=== PATIENT | female | born 1990 | race Caucasian/White ===

== ENCOUNTER 2021-01-01 14:26 | Emergency (ER) | payer BC, SELFPAY ==
[2021-01-01 15:00] VITALS: BP 136/93; PULSE 61; RESP 16; TEMP 37.9; O2SAT 99; BMI 33.9
[2021-01-01 15:12] LABS: Apearance,Urine Turbid (Clear); Color,Urine Orange (Yellow); Protein,Urine 2+ (Negative)
[2021-01-01 15:13] LABS: Glucose,Urine (UA) Trace (Negative); Ketones,Urine TRACE (Negative)
[2021-01-01 15:14] LABS: Bilirubin,Urine 1+ (Negative); Blood, Urine 1+ (Negative)
[2021-01-01 15:15] LABS: UTC Leukocyte Esterase,Urine 3+ (Negative); UTC Nitrate,Urine Positive (Negative); Urobilinogen,Urine 2 EU/dl (0.2)
--- NOTE | 2021-01-01 15:52 | HMH.EDUTC ---
[facility] – [place] Disposition Clinical Impression: UTI (urinary tract infection) Qualifiers: Urinary tract infection type: site unspecified Hematuria presence: with hematuria Qualified Code(s): N39.0 - Urinary tract infection, site not specified Disposition: Home, Self-Care Condition on Discharge: Good Instructions: Urinary Tract Infection, DI for Urinary Tract Infection (UTI) Additional Instructions: Drink plenty of fluids. Take tylenol or ibuprofen for pain or fever. Take the medications as directed. Follow up with your regular doctor. GO TO THE ER FOR ANY WORSENING SYMPTOMS The pyridium will make your urine turn orange, this is an expected side effect. It will stain your clothes if it comes into contact with them. Prescriptions: Ondansetron [Zofran 4mg ODT] 4 mg PO Q8HP PRN #20 tab.rapdis PRN Reason: Nausea [facility] Ciprofloxacin HCl [Cipro 500mg Tab] 500 mg PO BID 7 Days #14 tab Transmission Status: [facility] Phenazopyridine HCl [Pyridium 200mg Tablet] 200 pow PO TID #6 tab Transmission Status: [facility] Referrals: Provider,Referral, [Primary Care Provider] - Forms: Work/School Release Time of Disposition: 15:58 Medical Decision Making - Medical Records Medical records reviewed: No: I reviewed the patient's medical records. - Elio Inquiry Pt receiving controlled substance: No Vital Signs: 01/01/21 15:00 01/01/21 16:02 Temperature 100.3 F H 100.4 F H Temperature Source Oral Pulse Rate 124 H Pulse Rate [Right] 61 Respiratory Rate 16 16 Blood Pressure 132/87 Blood Pressure [Right Arm] 136/93 H Blood Pressure Mean [Right Arm] 107 Blood Pressure Source [Right Arm] Automatic Cuff Blood Pressure Position [Right Arm] Sitting 02 Sat by Pulse Oximetry 99 Oxygen Delivery Method Room Air - Lab Data Lab results reviewed: Yes: I reviewed the patient's lab results. Lab Results 01/01/21 15:07: Urine Color [place], Urine Appearance Turbid, Urine pH 5.0, Ur Specific [place] 1.020, Urine Protein 2+, Urine Glucose (UA) Trace, Urine Ketones Trace, Urine Blood 1+, Urine Nitrate Positive A, Urine Bilirubin 1+ A, Urine Urobilinogen 2, Ur Leukocyte Esterase 3+ A Orders (Tests/Meds): ORDERS Category Date Time Status Urine Culture Stat Micro 01/01/21 15:04 Results [facility] – [place] HPI - General Stated complaint: back and side pain,body aches Time Seen by Provider: 01/01/21 15:52 Mode of Arrival: Ambulatory Source of Information: Patient Limitations: No Limitations Description of Symptoms (Recalled from Triage Doc. by RN): pt was seen in the [facility] on Fri. she was dx with a UTI. pt was perscribed bactrim and peridium, with no relief thus far. pt complains of R sided flank and lower back pain that is a 7/10. pt c/o sweats, nausea, no appetite, lightheadedness, and is febrile. HEENT Symptoms (Recalled from RN notes): No Resp Symptoms (Recalled from RN notes): No Skin Symptoms (Recalled from RN notes): No MS Symptoms (Recalled from RN notes): No Functional Status (Recalled from RN notes): na - History of Present Illness Provider Complaint: She states that she has had low back pain and dysuria for the past 4 days. She went to the clinic in [facility] and she was diagnosed with uti and started on medication. She states that she is not better. - Related Data Home Medications Medication Instructions Recorded Confirmed norgestimate 0.25 mg-ethinyl 1 tab PO DAILY 12/29/20 12/29/20 estradiol 35 mcg tablet Previous Rx's Medication Instructions Recorded phenazopyridine 200 mg tablet 200 mg PO TID PRN 0 Days #6 tab 12/29/20 sulfamethoxazole 800 1 tab PO Q12H 10 Days #20 tab 12/29/20 mg-trimethoprim 160 mg tablet Ciprofloxacin HCl [Cipro 500mg 500 mg PO BID 7 Days #14 tab 01/01/21 Tab] Ondansetron [Zofran 4mg ODT] 4 mg PO Q8HP PRN #20 tab.rapdis 01/01/21 Phenaz
[2021-01-01 16:02] VITALS: BP 132/87; PULSE 124; RESP 16; TEMP 38
== END 2021-01-01 16:51 | disposition home or self-care (01) ==
PROVIDERS: Emergency Provider Nurse Practitioner Family
DX: N30.00 Acute cystitis without hematuria (principal); F41.8 Other specified anxiety disorders; F17.210 Nicotine dependence, cigarettes, uncomplicated
CPT/HCPCS: 81003; 87086; 87088; 87186; 99202; G0463

== ENCOUNTER → 2021-09-11 09:40 | Outpatient (CLI) | payer BC, SELFPAY | PROVIDERS: Visit Provider Nurse Practitioner | DX: Z20.822 Contact with and (suspected) exposure to COVID-19 (principal) | CPT/HCPCS: C9803; U0003; U0005 ==

== ENCOUNTER 2021-09-12 10:38 | Emergency (ER) | payer BC, SELFPAY ==
[2021-09-12 12:40] VITALS: BP 132/87; PULSE 84; RESP 18; TEMP 37.1; O2SAT 100; BMI 36.1
[2021-09-12 12:59] LABS: Strep Scrn Group A (Rapid) Negative (Negative)
[2021-09-12 13:08] LABS: UTC Influenza A Antigen Negative (Negative)
[2021-09-12 13:09] LABS: UTC Influenza B Antigen Negative (Negative)
--- NOTE | 2021-09-12 13:11 | HMH.EDUTC ---
[facility] – [place] Disposition Clinical Impression: Sinusitis Qualifiers: Sinusitis location: unspecified location Chronicity: unspecified Qualified Code(s): J32.9 - Chronic sinusitis, unspecified Disposition: Home, Self-Care Condition on Discharge: Good Instructions: Sinusitis, DI for Sinusitis Additional Instructions: *Monitor Temp, Over the counter Motrin or Tylenol as directed/as needed Tylenol every 4 hours and Motrin every 6 hours (as long as your family doctor has told you that you can take it) for fever or pain. and straight to ER if unable to lower temp less than 101.0 after medication given *Warm salt water gargles may help to soothe the throat *Throat Lozenges *Warm fluids like tea with honey may help to soothe the throat *Sleep elevated *Humidifier/Vaporizer Your throat swab was sent for culture. Those results are typically sent to your primary care. Be sure to follow up in 2-3 days with your family doctor/primary care physician if no improvement so they can review those result and treat if necessary. If you don?t have a primary care doctor, I recommend you get one but in the mean time, you will have to return to a walk in clinic Follow up IMMEDIATELY for new or worsening symptoms or no Noticeable improvement over the next 48-72 hours. 911 for difficulty breathing or swallowing You were tested for today for COVID19 your test result should be back in the next 24-48 hours, you may check your results on the [facility] my Health portal if you have trouble logging on you may call support to help you Make sure to take your Vitamins Vit. C Vit D and Zinc if you can take them Prescriptions: Benzonatate [Benzonatate 100mg cap] 100 mg PO Q8HP PRN #15 cap PRN Reason: Cough [facility]: [facility] Amoxicillin/Potassium Clav [Augmentin 875-125 Tablet] 1 tab PO Q12H 7 Days #14 tab Transmission Status: [facility] methylPREDNISolone [Medrol 4mg tab] 4 mg PO DIRECTED #21 tab Transmission Status: [facility] Referrals: Provider,Referral, MD [Primary Care Provider] - Forms: Work/School Release Time of Disposition: 13:16 Medical Decision Making - Elio Inquiry Pt receiving controlled substance: No Elio was queried for this patient: No Vital Signs: 09/12/21 12:40 Temperature 98.7 F Temperature Source Oral Pulse Rate [Right Brachial] 84 Respiratory Rate 18 Blood Pressure [Right Arm] 132/87 Blood Pressure Mean [Right Arm] 102 Blood Pressure Source [Right Arm] Automatic Cuff Blood Pressure Position [Right Arm] Sitting 02 Sat by Pulse Oximetry 100 Oxygen Delivery Method Room Air - Lab Data Lab results reviewed: Yes: I reviewed the patient's lab results. Lab Results 09/12/21 12:32: Influenza Type A Ag Negative, Influenza Type B Ag Negative 09/12/21 12:32: Group A Strep Rapid Negative Orders (Tests/Meds): ORDERS Category Date Time Status Covid-19 Nasal PCR ([facility]) Routine Lab 09/12/21 12:32 Received Strep Screen Confirmation Stat Micro 09/12/21 12:32 Received Medical Decision Narrative: Patient denies reports last period two weeks ago [facility] [place] HPI - General Stated complaint: sore throat, congestion Time Seen by Provider: 09/12/21 13:12 Mode of Arrival: Ambulatory Source of Information: Patient Limitations: No Limitations Description of Symptoms (Recalled from Triage Doc. by RN): PATIENT C/O COUGH, CONGESTION, BODY ACHES, SOA, SORE THROAT, AND LOW-GRADE FEVER X 3 DAYS HEENT Symptoms (Recalled from RN notes): Yes Resp Symptoms (Recalled from RN notes): Yes Skin Symptoms (Recalled from RN notes): No MS Symptoms (Recalled from RN notes): No Functional Status (Recalled from RN notes): WNL - History of Present Illness Provider Complaint: Patient state that she has been having sinus pain and pressure, sore throat, cough, congestion, and having headache and body aches, States that she was tested yesterday for COVID and wa
[2021-09-12 13:27] VITALS: BP 132/87; PULSE 84; RESP 18; TEMP 37.1; O2SAT 100
== END 2021-09-12 13:35 | disposition home or self-care (01) ==
PROVIDERS: Emergency Provider Nurse Practitioner
DX: J32.9 Chronic sinusitis, unspecified (principal); Z20.822 Contact with and (suspected) exposure to COVID-19; J02.9 Acute pharyngitis, unspecified; F17.210 Nicotine dependence, cigarettes, uncomplicated
CPT/HCPCS: 87430; 87804; 99203; C9803; G0463; U0003; U0005

== ENCOUNTER 2021-11-01 21:44 | Emergency (ER) | payer BC, SELFPAY ==
--- NOTE | 2021-11-01 21:44 | ECG_ITS ---
APPROVED REPORT Exam: Resting ECG HR:90 bpm ECG Measurements Heart Rate 90 AXES CA 139 P 68 QRSd 90 QRS 87 QT 350 T 64 QTc 397 Conclusion SINUS RHYTHM NORMAL ECG UNCONFIRMED REPORT Electronically signed by : Albin Johansen MD 11/03/2021 12:33:04
[2021-11-01 21:45] VITALS: BP 135/75; PULSE 87; RESP 18; TEMP 36.7; O2SAT 99; BMI 35.2
--- NOTE | 2021-11-01 21:56 | XR_ITS ---
PROCEDURE INFORMATION: Exam: XR Chest Exam date and time: 11/01/2021 10:17 PM Age: 30 years old Clinical indication: Cough and shortness of breath TECHNIQUE: Imaging protocol: XR of the chest. Views: 2 views. COMPARISON: No relevant prior studies available. FINDINGS: Lungs: Unremarkable. No consolidation. Pleural spaces: Unremarkable. No pleural effusion. No pneumothorax. Heart/Mediastinum: Unremarkable. No cardiomegaly. Bones/joints: Unremarkable. IMPRESSION: No acute findings.
--- NOTE | 2021-11-01 21:57 | CT_ITS ---
PROCEDURE INFORMATION: Exam: CTA Chest With Contrast Exam date and time: 11/01/2021 10:27 PM Age: 30 years old Clinical indication: Cough and shortness of breath; Additional info: SOA, cough TECHNIQUE: Imaging protocol: Computed tomographic angiography of the chest with contrast. 3D rendering (Not supervised by radiologist): MIP and/or 3D reconstructed images were created by the technologist. Radiation optimization: All CT scans at this facility use at least one of these dose optimization techniques: automated exposure control; mA and/or kV adjustment per patient size (includes targeted exams where dose is matched to clinical indication); or iterative reconstruction. Contrast material: ISOVUE; Contrast volume: 70 ml; Contrast route: INTRAVENOUS (IV); COMPARISON: CR XR CHEST 2V 11/01/2021 10:17 PM FINDINGS: Pulmonary arteries: Normal. No pulmonary emboli. Aorta: Unremarkable. No aortic aneurysm. No aortic dissection. Lungs: Unremarkable. No consolidation. No masses. Pleural spaces: Unremarkable. No pneumothorax. No pleural effusion. Heart: Unremarkable. No cardiomegaly. No pericardial effusion. Lymph nodes: Unremarkable. No enlarged lymph nodes. Bones/joints: Unremarkable. No acute fracture. Soft tissues: Unremarkable. IMPRESSION: No acute findings.
[2021-11-01 22:04] LABS: Basophils # 0.2 K/mm3 (0-0.2); Basophils % 1.5 % (0.1-2.0); Eosinophils # 0.3 K/mm3 (0.0-0.4); Eosinophils % 3.4 % (0.1-12.0); Hematocrit 49.2 % (37.0-47.0); Hemoglobin 15.6 g/dL (12.2-16.2); Lymphocytes # 0.9 K/mm3 (0.7-4.5); Lymphocytes % 9.2 % (10-50); Mean Corpuscular HGB Conc 31.6 g/dL (31.8-35.4); Mean Corpuscular Hemoglobin 30.5 pg (27.0-31.2); Mean Corpuscular Volume 96.6 fl (81-99); Mean Platelet Volume 8.2 fl (7.4-10.4); Monocytes # 0.5 K/mm3 (0.1-1.0); Monocytes % 5.1 % (1.7-9.3); Neutrophils # 7.9 K/mm3 (1.8-7.8); Neutrophils % 80.8 % (37.0-80.0); Platelet Count 309 K/mm3 (142-424); Red Blood Count 5.09 M/mm3 (4.20-5.40); Red Cell Distribution Width 13.1 % (11.5-17.5); White Blood Count 9.8 K/mm3 (4.8-10.8)
[2021-11-01 22:05] LABS: Chloride 104 mmol/L (98-107); Potassium 4.1 mmoL/L (3.5-5.1); Sodium 139 mmol/L (136-145)
[2021-11-01 22:07] LABS: Alanine Aminotransferase 35 U/L (12-78); Aspartate Amino Transferase 38 U/L (14-36); Bilirubin,Total 0.6 mg/dl (0.2-1.3); Blood Urea Nitrogen 14 mg/dl (7-17); Creatinine Clearance Estimated 130 mL/min (50-200); Estimated Glomerular Filt Rate 53 ml/min (>60); GFR (African American) 65 ML/MIN (>60)
[2021-11-01 22:08] LABS: Albumin Level 4.8 g/dl (3.5-5.0); Albumin/Globulin Ratio 1.3 (1.1-1.8); Alkaline Phosphatase 85 U/L (38-126); Anion Gap 10.1 mEq/L (5-15); Calcium 9.1 mg/dl (8.4-10.2); Carbon Dioxide 29 mmol/L (22.0-30.0); Globulin 3.7 g/dL (1.3-3.2); Glucose 73 mg/dl (74-100); Total Protein,Serum 8.5 g/dl (6.3-8.2)
--- NOTE | 2021-11-01 22:09 | HMH.EDCP ---
ED Disposition Clinical Impression: Pleurisy Disposition: Home, Self-Care Condition on Discharge: Good Instructions: DI for Pleurisy Additional Instructions: use meds and see pcp for follow up Prescriptions: predniSONE [Prednisone 20mg Tab] 20 mg PO BID #10 tab Transmission Status: [facility] Azithromycin [Zithromax 250mg tab] 250 mg PO DIRECTED #6 tab Transmission Status: [facility] Referrals: Provider,Referral, [Primary Care Provider] - - Critical Care Critical Care Time: No Attestation: On 11/01/21, the high probability of a clinically significant, sudden or life threatening deterioration of the following system(s) required my full and direct attention, intervention and personal management. The time I documented below is in addition to time spent performing reported procedures but includes the following listed in this critical care notation. Medical Decision Making - Medical Records Medical records reviewed: Yes: I reviewed the patient's medical records. - Elio Inquiry Pt receiving controlled substance: No Vital Signs: 11/01/21 21:45 Temperature 98.1 F Temperature Source Oral Pulse Rate [Apical] 87 Respiratory Rate 18 Blood Pressure [Right Arm] 135/75 Blood Pressure Mean [Right Arm] 95 Blood Pressure Source [Right Arm] Automatic Cuff Blood Pressure Position [Right Arm] Sitting 02 Sat by Pulse Oximetry 99 Oxygen Delivery Method Room Air - Lab Data Lab results reviewed: Yes: I reviewed the patient's lab results. Lab Results 11/01/21 21:49: WBC 9.8, RBC 5.09, Hgb 15.6, Hct 49.2 H, MCV 96.6, MCH 30.5, MCHC 31.6 L, RDW 13.1, Plt Count 309, MPV 8.2, Neut % (Auto) 80.8 H, Lymph % (Auto) 9.2 L, [place] % (Auto) 5.1, Eos % (Auto) 3.4, Baso % (Auto) 1.5, Neut # (Auto) 7.9 H, Lymph # (Auto) 0.9, [place] # (Auto) 0.5, Eos # (Auto) 0.3, Baso # (Auto) 0.2 11/01/21 21:49: Sodium 139, Potassium 4.1, Chloride 104, Carbon Dioxide 29, Anion Gap 10.1, BUN 14, Creatinine 1.20 H, Estimated Creat Clear 130, Estimated GFR 53 L, Est GFR ( Amer) 65, Glucose 73 L, Calcium 9.1, Total Bilirubin 0.6, AST 38 H, ALT 35, Alkaline Phosphatase 85, Total Protein 8.5 H, Albumin 4.8, Globulin 3.7 H, Albumin/Globulin Ratio 1.3 11/01/21 21:49: ESR 18 11/01/21 21:49: C-Reactive Protein 6.0 H, Procalcitonin 0.033 11/01/21 21:49: Serum HCG, Qual Negative 11/01/21 22:06: SARS-CoV-2 (PCR) Not detected, Influenza A Untype (PCR) Not detected, Influenza Type B (PCR) Not detected Result diagrams: 11/01/21 21:49 11/01/21 21:49 Orders (Tests/Meds): ED MEDICATIONS Generic Name Dose Route Start Last Admin Trade Name Freq PRN Reason Stop Dose Admin Lactated Ringer's 1,000 mls @ 999 mls/hr 11/01/21 22:15 11/01/21 22:02 Lactated Ringer's 1000 Ml Bag IV 11/01/21 23:15 999 mls/hr .Q1H1M JANN Administration Discontinued Medications Generic Name Dose Route Start Last Admin Trade Name Freq PRN Reason Stop Dose Admin Sodium Chloride 1,000 mls @ 999 mls/hr 11/01/21 22:00 Sod Chlor 0.9% 1000ml Bag IV 11/01/21 23:00 .Q1H1M JANN Iopamidol 70 ml 11/01/21 22:36 11/01/21 22:37 Iopamidol-370 (76%);100ml Bottle IV 11/01/21 22:37 70 ml ONCE ONE Administration Ketorolac Tromethamine 30 mg 11/01/21 21:57 11/01/21 22:02 Ketorolac 30mg/Ml Vial IV 11/01/21 21:58 30 mg ONCE ONE Administration Sodium Chloride 50 ml 11/01/21 22:36 11/01/21 22:37 0.9 % Sodium Chloride 50 Ml Vial IV 11/01/21 22:37 50 ml ONCE ONE Administration Sodium Chloride 10 ml 11/01/21 22:36 11/01/21 22:37 Sodium Chloride 0.9% 10ml Syr (Rad Only) IV 11/01/21 22:37 10 ml ONCE ONE Administration ORDERS Category Date Time Status Comprehensive Metabolic Panel Stat Lab 11/01/21 21:49 Results T4 (Thyroxine) Stat Lab 11/01/21 21:49 Results Thyroid Stimulating Hormone Stat Lab 11/01/21 21:49 Results Troponin I Q3H Lab 11/02/21 01:00 Ordered Tropon
[2021-11-01 22:10] LABS: Coronavirus 19, PCR Not Detected (NotDetected); Influenza A, PCR Not Detected (NotDetected); Influenza B, PCR Not Detected (NotDetected)
[2021-11-01 22:22] LABS: HCG Qualitative, Serum Negative (Negative)
[2021-11-01 22:26] LABS: T4 (Thyroxine) 9.1 ug/dl (5.53-11.0)
[2021-11-01 22:34] LABS: Procalcitonin 0.033 ng/mL (0.0-2.0)
[2021-11-01 22:39] LABS: Thyroid Stimulating Hormone 2.44 uIU/mL (0.465-4.68)
[2021-11-01 22:48] LABS: Erythrocyte Sedimentation Rate 18 mm/hr (0-20)
[2021-11-01 23:17] VITALS: BP 130/70; PULSE 78; RESP 20; TEMP 36.8; O2SAT 99
[2021-11-01 23:29] LABS: Troponin I < 0.01 ng/ml (0.00-0.034)
== END 2021-11-01 23:19 | disposition home or self-care (01) ==
PROVIDERS: Emergency Provider Emergency Medicine
DX: R09.1 Pleurisy (principal); F41.8 Other specified anxiety disorders; F17.210 Nicotine dependence, cigarettes, uncomplicated; Z79.899 Other long term (current) drug therapy
CPT/HCPCS: 71046; 71275; 80053; 84145; 84436; 84443; 84484; 84703; 85025; 85651; 86140; 93005; 96365; 96375; 99284; C9803; Q9967; U0003; U0005

== ENCOUNTER 2021-11-04 09:04 | Emergency (ER) | payer BC, SELFPAY ==
[2021-11-04 09:10] VITALS: BP 143/90; PULSE 129; RESP 19; TEMP 36.8; O2SAT 99; BMI 36.7
--- NOTE | 2021-11-04 09:46 | PC.NURSE ---
PATIENT SENT TO ER PER Joaquín KENNEDY APRN FOR FURTHER EVALUATION. REPORT GIVEN TO Ambar CHAVEZ RN
--- NOTE | 2021-11-04 09:47 | HMH.EDUTC ---
[facility] – [place] Clinical Impression: Chest pain Qualifiers: Chest pain type: chest pain on breathing Qualified Code(s): R07.1 - Chest pain on breathing Disposition: Still a Patient Condition on Discharge: Good Referrals: Provider,Referral, [Primary Care Provider] - Time of Disposition: 09:51 (sent to ed for eval) Medical Decision Making - Elio Inquiry Pt receiving controlled substance: No Vital Signs: 11/04/21 09:10 Temperature 98.3 F Temperature Source Oral Pulse Rate [Right Brachial] 129 H Respiratory Rate 19 Blood Pressure [Right Arm] 143/90 H Blood Pressure Mean [Right Arm] 107 Blood Pressure Source [Right Arm] Automatic Cuff Blood Pressure Position [Right Arm] Sitting 02 Sat by Pulse Oximetry 99 Oxygen Delivery Method Room Air [facility] – [place] HPI - General Chief complaint: Urgent [facility] Stated complaint: dizziness, congestion Time Seen by Provider: 11/04/21 09:47 Mode of Arrival: Ambulatory Source of Information: Patient Limitations: No Limitations Description of Symptoms (Recalled from Triage Doc. by RN): PATIENT C/O ELEVATED HEART RATE WITH EXERTION, DIFFICULTY BREATHING, PAIN IN CHEST WITH BREATHING, BODY ACHES, AND LOW-GRADE FEVER. SHE REPORTS SHE WAS SEEN IN ER ON 11/01 AND WAS DIAGNOSED WITH PLEURISY AND GIVEN Z-PACK AND PREDNISONE AND TOLD TO RETURN IF NOT BETTER HEENT Symptoms (Recalled from RN notes): No Resp Symptoms (Recalled from RN notes): Yes Skin Symptoms (Recalled from RN notes): No MS Symptoms (Recalled from RN notes): No Functional Status (Recalled from RN notes): WNL - History of Present Illness Provider Complaint: 30 yr old female presents for elevated hr, difficulty breathing,pain with breathing, body aches and low grade fever. pt was seen in ed on 11/01 and was given xpak and steroids but is not improved. - Related Data Allergies Allergy/AdvReac Type Severity Reaction Status Date / Time shrimp Allergy Mild Verified 07/24/21 15:14 - Worker's Comp Is this a Worker's Comp case?: No [facility] History - Hepatitis A Screen Drug use history?: No High risk sexual behaviors?: No History of sexually transmitted infection?: No Currently employed?: No Childcare worker?: No Do you have indoor plumbing?: Yes Do you have electricity?: Yes Attestation statement:: This patient has been screened for Hepatitis A risk factors. I have reviewed the patient's past medical history: Yes Medical History: Reports:: Anxiety, Depression Comment: Bipolar Disorder Other Surgeries: Yes: No Previous Surgery Amputation: No Fractures: Yes - Social History Smoking Status: Current every day smoker Tobacco Type: cigarettes # Packs/Day (cigarettes): 1 Alcohol Intake: current Alcohol Intake Frequency:: holidays/special occasions only Substance Use Type: marijuana Occupational Status: employed Housing: house Household Members: family - Psychiatric History Pschychiatric History:: Reports:: Anxiety, Depression Family Hx:: No significant family history ROS Obtained: Yes Systems reviewed as appropriate & no additional complaints - Constitutional Constitutional: Reports system reviewed and no additional complaints, except as docu, Reports body ache, Reports fever(s) - Eyes Eyes: Reports system reviewed and no additional complaints, except as docu, Denies blurry vision - ENT Ears, Nose, Mouth, and Throat: Reports system reviewed and no additional complaints, except as docu, Reports sinus pain, Reports sinus pressure - Cardiovascular Cardiovascular: Reports system reviewed and no additional complaints, except as docu, Reports chest pain, Reports chest pain with activity, Reports dyspnea on exertion - Respiratory Respiratory: Reports system reviewed and no additional complaints, except as docu, Reports shortness of breath - Gastrointestinal Gastrointestingal: Reports: system reviewed and no additional complaints, except as docu. Denies: abdominal pain - Musculoskeletal Musculoskeleta
--- NOTE | 2021-11-04 09:50 | ECG_ITS ---
APPROVED REPORT Exam: Resting ECG HR:100 bpm ECG Measurements Heart Rate 100 AXES [place] 127 P 51 QRSd 84 QRS 76 QT 328 T 47 QTc 385 Conclusion SINUS TACHYCARDIA NONSPECIFIC T-WAVE ABNORMALITY ABNORMAL RHYTHM ECG UNCONFIRMED REPORT Electronically signed by : Albin Johansen MD 11/04/2021 20:09:24
[2021-11-04 09:57] VITALS: BP 127/84; PULSE 62; RESP 20; O2SAT 97; BMI 36.7
--- NOTE | 2021-11-04 09:58 | HMH.EDGENADL ---
ED Disposition Clinical Impression: Influenza A Disposition: Home, Self-Care Condition on Discharge: Good Instructions: DI for Influenza -- Adult Additional Instructions: You may stop taking Zithromax and prednisone. Tamiflu as prescribed. Rest, plenty of fluids, Tylenol or ibuprofen for pain and fever. Prescriptions: Oseltamivir Phosphate [Tamiflu 75mg Capsule] 75 mg PO BID #10 cap Transmission Status: Pending to [facility] Referrals: Provider,Referral, MD [Primary Care Provider] - Forms: Work/School Release - Critical Care Critical Care Time: No Attestation: On 11/04/21, the high probability of a clinically significant, sudden or life threatening deterioration of the following system(s) required my full and direct attention, intervention and personal management. The time I documented below is in addition to time spent performing reported procedures but includes the following listed in this critical care notation. Medical Decision Making - Medical Records Medical records reviewed: Yes: I reviewed the patient's medical records. MR Comment: Reviewed emergency department note from 11/01/2021. Extensive work-up for the same complaints. Work-up included CT angiogram of chest which was negative. Covid and flu tests were negative. - Elio Inquiry Pt receiving controlled substance: No Vital Signs: 11/04/21 09:10 11/04/21 09:57 11/04/21 10:02 Temperature 98.3 F Temperature Source Oral Pulse Rate 103 H Pulse Rate [Right Brachial] 129 H 62 Respiratory Rate 19 20 Blood Pressure 127/84 Blood Pressure [Right Arm] 143/90 H 127/84 Blood Pressure Mean [Right Arm] 107 98 Blood Pressure Source [Right Arm] Automatic Cuff Automatic Cuff Blood Pressure Position [Right Arm] Sitting Sitting 02 Sat by Pulse Oximetry 99 97 94 L Oxygen Delivery Method Room Air Room Air 11/04/21 10:59 Temperature Temperature Source Pulse Rate Pulse Rate [Right Brachial] Respiratory Rate 16 Blood Pressure 115/76 Blood Pressure [Right Arm] Blood Pressure Mean [Right Arm] Blood Pressure Source [Right Arm] Blood Pressure Position [Right Arm] 02 Sat by Pulse Oximetry 94 L Oxygen Delivery Method - Lab Data Lab Results 11/04/21 09:29: Sodium 139, Potassium 4.3, Chloride 103, Carbon Dioxide 23, Anion Gap 17.3 H, BUN 12, Creatinine 0.90 D, Estimated Creat Clear 181, Estimated GFR 75, Est GFR ( Amer) 90 D, Glucose 92, Calcium 9.1, Total Bilirubin 0.5, AST 34, ALT 31, Alkaline Phosphatase 78, Troponin I < 0.01, Total Protein 8.2, Albumin 4.7, Globulin 3.5 H, Albumin/Globulin Ratio 1.3 11/04/21 09:59: WBC 7.8, RBC 5.40, Hgb 16.4 H, Hct 51.0 H, MCV 94.6, MCH 30.3, MCHC 32.1, RDW 13.0, Plt Count 270, MPV 8.0, Neut % (Auto) 73.4, Lymph % (Auto) 15.5, [place] % (Auto) 10.4 H, Eos % (Auto) 0.0 L, Baso % (Auto) 0.7, Neut # (Auto) 5.7, Lymph # (Auto) 1.2, [place] # (Auto) 0.8, Eos # (Auto) 0.0, Baso # (Auto) 0.1 11/04/21 10:30: SARS-CoV-2 (PCR) Not detected, Influenza A Untype (PCR) Detected A, Influenza Type B (PCR) Not detected Result diagrams: 11/04/21 09:59 11/04/21 09:29 Orders (Tests/Meds): ORDERS Category Date Time Status Troponin I Q3H Lab 11/04/21 13:15 Ordered Troponin I Q3H Lab 11/04/21 16:15 Ordered - Radiology Data #1 Image(s): Chest Image Reviewed: Yes I have reviewed radiologist's interpretation PROCEDURE INFORMATION: Exam: XR Chest Exam date and time: 11/04/2021 10:21 AM Age: 30 years old Clinical indication: Shortness of breath; Additional info: SOA TECHNIQUE: Imaging protocol: XR of the chest. Views: 2 views. COMPARISON: CR XR CHEST 2V 11/01/2021 10:17 PM FINDINGS: Lungs: Unremarkable. No consolidation. Pleural spaces: Unremarkable. No pleural effusion. No pneumothorax. Heart/Mediastinum: Unremarkable. No cardiomegaly. Bones/joints: Unremarkable. IMPRESSION: No acute findings.
[2021-11-04 10:02] VITALS: BP 127/84; PULSE 103; O2SAT 94
--- NOTE | 2021-11-04 10:10 | XR_ITS ---
PROCEDURE INFORMATION: Exam: XR Chest Exam date and time: 11/04/2021 10:21 AM Age: 30 years old Clinical indication: Shortness of breath; Additional info: SOA TECHNIQUE: Imaging protocol: XR of the chest. Views: 2 views. COMPARISON: CR XR CHEST 2V 11/01/2021 10:17 PM FINDINGS: Lungs: Unremarkable. No consolidation. Pleural spaces: Unremarkable. No pleural effusion. No pneumothorax. Heart/Mediastinum: Unremarkable. No cardiomegaly. Bones/joints: Unremarkable. IMPRESSION: No acute findings.
--- NOTE | 2021-11-04 10:17 | PC.NURSE ---
labs EKG and Iv done. waiting on CXR and pt is sitting calmly in room
[2021-11-04 10:29] LABS: Potassium 4.3 mmoL/L (3.5-5.1); Sodium 139 mmol/L (136-145)
[2021-11-04 10:31] LABS: Alanine Aminotransferase 31 U/L (12-78); Alkaline Phosphatase 78 U/L (38-126); Aspartate Amino Transferase 34 U/L (14-36); Bilirubin,Total 0.5 mg/dl (0.2-1.3); Blood Urea Nitrogen 12 mg/dl (7-17); Creatinine Clearance Estimated 181 mL/min (50-200); Estimated Glomerular Filt Rate 75 ml/min (>60); GFR (African American) 90 ML/MIN (>60)
[2021-11-04 10:32] LABS: Albumin Level 4.7 g/dl (3.5-5.0); Albumin/Globulin Ratio 1.3 (1.1-1.8); Calcium 9.1 mg/dl (8.4-10.2); Carbon Dioxide 23 mmol/L (22.0-30.0); Globulin 3.5 g/dL (1.3-3.2); Glucose 92 mg/dl (74-100); Total Protein,Serum 8.2 g/dl (6.3-8.2)
[2021-11-04 10:37] LABS: Coronavirus 19, PCR Not Detected (NotDetected); Influenza B, PCR Not Detected (NotDetected)
[2021-11-04 10:44] LABS: Troponin I < 0.01 ng/ml (0.00-0.034)
[2021-11-04 10:59] VITALS: BP 115/76; RESP 16; O2SAT 94
[2021-11-04 11:10] LABS: Influenza A, PCR Detected (NotDetected)
[2021-11-04 11:21] LABS: Basophils # 0.1 K/mm3 (0-0.2); Basophils % 0.7 % (0.1-2.0); Hemoglobin 16.4 g/dL (12.2-16.2); Lymphocytes # 1.2 K/mm3 (0.7-4.5); Lymphocytes % 15.5 % (10-50); Mean Corpuscular HGB Conc 32.1 g/dL (31.8-35.4); Mean Corpuscular Hemoglobin 30.3 pg (27.0-31.2); Mean Corpuscular Volume 94.6 fl (81-99); Monocytes # 0.8 K/mm3 (0.1-1.0); Monocytes % 10.4 % (1.7-9.3); Neutrophils # 5.7 K/mm3 (1.8-7.8); Neutrophils % 73.4 % (37.0-80.0); Platelet Count 270 K/mm3 (142-424); White Blood Count 7.8 K/mm3 (4.8-10.8)
[2021-11-04 11:22] LABS: Anion Gap 17.3 mEq/L (5-15); Chloride 103 mmol/L (98-107)
[2021-11-04 11:50] VITALS: BP 115/76; PULSE 62; RESP 16; TEMP 36.8; O2SAT 97
== END 2021-11-04 11:52 | disposition home or self-care (01) ==
LOC: UTC 09:07 → ER 09:46
PROVIDERS: Emergency Medicine; Emergency Provider Nurse Practitioner Family
DX: J10.1 Influenza due to other identified influenza virus with other respiratory manifestations (principal); R09.1 Pleurisy; R42 Dizziness and giddiness; R00.0 Tachycardia, unspecified; Z20.822 Contact with and (suspected) exposure to COVID-19; M79.10 Myalgia, unspecified site; F32.A Depression, unspecified; F41.9 Anxiety disorder, unspecified; F17.210 Nicotine dependence, cigarettes, uncomplicated; Z91.013 Allergy to seafood
CPT/HCPCS: 71046; 80053; 84484; 85025; 93005; 99285; C9803; U0003; U0005

== ENCOUNTER 2023-05-31 12:30 | Emergency (ER) | payer BC, SELFPAY ==
[2023-05-31 12:35] VITALS: BP 130/70; PULSE 91; RESP 20; TEMP 36.8; O2SAT 97; BMI 37.5
[2023-05-31 12:42] VITALS: BP 130/70; PULSE 91; RESP 20; TEMP 36.8; O2SAT 97
--- NOTE | 2023-05-31 12:46 | EXP.UTC ---
Discharge Plan Disposition Patient Disposition: Home, Self-Care Condition: Good Prescriptions Prescriptions: New azithromycin [Zithromax Z-Steven] 250 mg tablet See Rx Instructions .ROUTE .COMPLEX 5 Days Qty: 6 0RF Rx Instructions: For 250 mg dose pack: take 500 mg today (day 1), then 250 mg for 4 days (days 2-5) benzonatate 100 mg capsule 100 mg PO TID PRN (Reason: cough) Qty: 30 0RF methylprednisolone [Medrol (Steven)] 4 mg tablets,dose pack See Rx Instructions .Route .COMPLEX 6 Days Qty: 21 0RF Rx Instructions: taper pack; No Action fluoxetine [Prozac] 40 mg capsule 40 mg PO DAILY Qty: 30 1RF hydroxyzine HCl 10 mg tablet 10 mg PO TID PRN (Reason: anxiety) Qty: 90 1RF buspirone 10 mg tablet 10 mg PO BID aripiprazole [Abilify] 10 mg tablet 10 mg PO QHS Referrals Follow up/Referrals: Provider,Referral, MD [Primary Care Provider] - See instructions Activity Restrictions/Add. Instructions Additional Instructions/Restrictions: *Monitor Temp, Over the counter Motrin or Tylenol as directed/as needed Tylenol every 4 hours and Motrin every 6 hours (as long as your family doctor has told you that you can take it) for fever or pain. and straight to ER if unable to lower temp less than 101.0 after medication given *Warm salt water gargles may help to soothe the throat *Throat Lozenges? *Warm fluids like tea with honey may help to soothe the throat? *Sleep elevated *Humidifier/Vaporizer *Flonase 2 sprays in each nostril daily but be aware that it may take 2-3 days before you notice improvement Follow up IMMEDIATELY for new or worsening symptoms or no Noticeable improvement over the next 48-72 hours. 911 for difficulty breathing or swallowing Clinical Impressions Clinical Impression: Sinusitis Qualifiers: Sinusitis location: unspecified location Chronicity: unspecified Qualified Code(s): J32.9 - Chronic sinusitis, unspecified Instructions Patient Instructions: DI for Sinusitis, Sinusitis Discharge ED Provider: Viridiana Whitney [facility] HPI General Stated complaint: congestion, sore throat, cough Mode of Arrival: Ambulatory Source of Information: Patient Limitations: No Limitations Time Seen by Provider: 05/31/23 12:46 Description of Symptoms (Recalled from Triage Doc. by RN): PATIENT C/O CONGESTION, SORE THROAT, CHILLS, COUGH AND SNEEZING X 2 DAYS HEENT Symptoms (Recalled from RN notes): Yes Resp Symptoms (Recalled from RN notes): Yes Skin Symptoms (Recalled from RN notes): No MS Symptoms (Recalled from RN notes): No Functional Status (Recalled from RN notes): WNL History of Present Illness Provider Complaint: Patient states that she has been having sinus congestion and pressure for several days that has got worse in the last couple of days, scratchy throat and cough along with chills and sinus headache States that today she was having worsening pressure behind her eyes so she came in Related Data Home Medications Medication Instructions Recorded Confirmed aripiprazole 10 mg tablet (Abilify) 10 mg PO QHS . 05/31/23 05/31/23 buspirone 10 mg tablet 10 mg PO BID . 05/31/23 05/31/23 Previous Rx's Medication Instructions Recorded fluoxetine 40 mg capsule (Prozac) 40 mg PO DAILY #30 caps 04/30/23 hydroxyzine HCl 10 mg tablet 10 mg PO TID PRN anxiety #90 tabs 04/30/23 azithromycin 250 mg tablet See Rx Instructions PO .COMPLEX 5 05/31/23 (Zithromax Z-Steven) days #6 tabs benzonatate 100 mg capsule 100 mg PO TID PRN cough #30 caps 05/31/23 methylprednisolone 4 mg tablets in See Rx Instructions .Route 05/31/23 a dose pack (Medrol (Steven)) .COMPLEX 6 days #21 tabs Allergies Allergy/AdvReac Type Severity Reaction Status Date / Time shrimp Allergy Mild Verified 04/30/23 08:34 Worker's Comp Is this a Worker's Comp case?: No [facility] Disclaimer: The information contained in this section may have been updated after the miguel
== END 2023-05-31 12:57 | disposition home or self-care (01) ==
PROVIDERS: Emergency Provider Nurse Practitioner
DX: J01.90 Acute sinusitis, unspecified (principal); F17.210 Nicotine dependence, cigarettes, uncomplicated; F41.9 Anxiety disorder, unspecified; F31.81 Bipolar II disorder
CPT/HCPCS: 99212; 99214; G0463

== ENCOUNTER 2023-06-22 08:04 | Emergency (ER) | payer BC, SELFPAY ==
[2023-06-22 08:15] VITALS: BP 129/86; PULSE 90; RESP 18; TEMP 36.9; O2SAT 96; BMI 37.3
[2023-06-22 08:29] LABS: UTC Strep Screen (Rapid) Negative (Negative)
--- NOTE | 2023-06-22 08:29 | EXP.UTC ---
Discharge Plan Disposition Patient Disposition: Home, Self-Care Condition: Good Prescriptions Prescriptions: New methylprednisolone 4 mg Tablets,Dose Pack 4 mg PO DIRECTED Qty: 21 0RF amoxicillin-pot clavulanate 875-125 mg Tablet 1 tab PO Q12H Qty: 20 0RF No Action fluoxetine [Prozac] 40 mg capsule 40 mg PO DAILY Qty: 30 1RF hydroxyzine HCl 10 mg tablet 10 mg PO TID PRN (Reason: anxiety) Qty: 90 1RF buspirone 10 mg tablet 10 mg PO BID aripiprazole [Abilify] 10 mg tablet 10 mg PO QHS Referrals Follow up/Referrals: Provider,Referral, MD [Primary Care Provider] - See instructions Activity Restrictions/Add. Instructions Additional Instructions/Restrictions: Drink plenty of fluids. Take tylenol or ibuprofen for pain or fever. Take the medications as directed. Follow up with your regular doctor. GO TO THE ER FOR ANY WORSENING SYMPTOMS Clinical Impressions Clinical Impression: Abscess, dental Stand Alone Forms Stand Alone Forms: Work/School Release Instructions Patient Instructions: Tooth Abscess, DI for Tooth Abscess Discharge ED Provider: Gerson Rosario [facility] General Stated complaint: THROAT HURTS, DRAINAGE Mode of Arrival: Ambulatory Source of Information: Patient Limitations: No Limitations Time Seen by Provider: 06/22/23 08:17 Description of Symptoms (Recalled from Triage Doc. by RN): Oral pain, pain when swallowing, drainage, and swelling of face, neck, and mouth. HEENT Symptoms (Recalled from RN notes): Yes Resp Symptoms (Recalled from RN notes): No Skin Symptoms (Recalled from RN notes): No MS Symptoms (Recalled from RN notes): No Functional Status (Recalled from RN notes): n/a History of Present Illness Provider Complaint: She c/o sore throat and right sided sinus pain for the past 2 days. Related Data Home Medications Medication Instructions Recorded Confirmed aripiprazole 10 mg tablet (Abilify) 10 mg PO QHS . 05/31/23 06/22/23 buspirone 10 mg tablet 10 mg PO BID . 05/31/23 06/22/23 Previous Rx's Medication Instructions Recorded fluoxetine 40 mg capsule (Prozac) 40 mg PO DAILY #30 caps 04/30/23 hydroxyzine HCl 10 mg tablet 10 mg PO TID PRN anxiety #90 tabs 04/30/23 amoxicillin 875 mg-potassium 1 tab PO Q12H #20 tabs 06/22/23 clavulanate 125 mg tablet methylprednisolone 4 mg tablets in 4 mg PO DIRECTED #21 tabs 06/22/23 a dose pack Allergies Allergy/AdvReac Type Severity Reaction Status Date / Time shrimp Allergy Mild Verified 06/22/23 08:23 Worker's Comp Is this a Worker's Comp case?: No PFSH PFS Disclaimer: The information contained in this section may have been updated after the patient was seen, as this information can be updated by other users. Medical History (Updated 06/22/23 @ 08:37 by Gerson Rosario APRN) Anxiety Bipolar II disorder Urinary tract infection Social History Smoking Status: Current every day smoker tobacco type: cigarettes packs per day: 1 alcohol intake: current substance use type: marijuana current occupational status: employed Travel in the last 8 weeks: None household members: family housing: house number of children: 0 ROS Obtained: Yes All systems reviewed & no additional complaints except as documented Constitutional Constitutional: Denies chills and Denies fever(s) Eyes Eyes: Denies eye discharge ENT Ears, Nose, Mouth, and Throat: Reports as per HPI, Denies dizziness, Denies otalgia and Denies sore throat Cardiovascular Cardiovascular: Denies chest pain Respiratory Respiratory: Denies shortness of breath, Denies chest congestion, Denies cough, Denies stridor and Denies wheezing Gastrointestinal Gastrointestingal: Denies nausea or vomiting Musculoskeletal Musculoskeletal: Reports system reviewed and no additional complaints, except as documented and Denies arthralgias Integumentary/Breasts Skin/Breast:
[2023-06-22 08:47] VITALS: BP 129/86; PULSE 90; RESP 18; TEMP 36.9; O2SAT 96
== END 2023-06-22 08:47 | disposition home or self-care (01) ==
PROVIDERS: Emergency Provider Nurse Practitioner Family
DX: K04.7 Periapical abscess without sinus (principal); F17.210 Nicotine dependence, cigarettes, uncomplicated; F31.81 Bipolar II disorder; F41.9 Anxiety disorder, unspecified
CPT/HCPCS: 87880; 99212; 99214; G0463

== ENCOUNTER 2023-07-19 12:21 | Emergency (ER) | payer BC, SELFPAY ==
[2023-07-19 13:50] VITALS: BP 142/90; PULSE 103; RESP 18; TEMP 36.7; O2SAT 97; BMI 37.3
--- NOTE | 2023-07-19 14:07 | EXP.UTC ---
Discharge Plan Disposition Patient Disposition: Home, Self-Care Condition: Good Prescriptions Prescriptions: New wdtncavsgysrhgs-pjhhmwpbu-YP [Bromfed DM] 2-30-10 mg/5 mL syrup 5 ml PO Q6H PRN (Reason: cold symptoms) Qty: 118 0RF No Action fluoxetine [Prozac] 40 mg capsule 40 mg PO DAILY Qty: 30 1RF hydroxyzine HCl 10 mg tablet 10 mg PO TID PRN (Reason: anxiety) Qty: 90 1RF buspirone 10 mg tablet 10 mg PO BID aripiprazole [Abilify] 10 mg tablet 10 mg PO QHS Referrals Follow up/Referrals: Provider,Referral, MD [Primary Care Provider] - See instructions Activity Restrictions/Add. Instructions Additional Instructions/Restrictions: No sign of a bacterial infection. Likely viral. Viruses can take 7-14 days to run their course. Nasal saline and bulb syringe or nose Allison to remove nasal drainage to help with nasal congestion. Hard to eat, drink, sleep with nasal congestion so important to keep this cleaned out. Monitor temp. Tylenol or Motrin as needed for pain or fever Encourage fluids, water, Gatorade, Powerade, Pedialyte if /toddler/child Warm salt water gargles Warm fluids Sore throat lozenges Sleep elevated Humidifier/vaporizer Follow-up immediately for new or worsening symptoms or no noticeable improvement over the next 48-72 hours. do not hydroxyzine with bromfed Clinical Impressions Clinical Impression: Upper respiratory infection Qualifiers: URI type: unspecified viral URI Qualified Code(s): J06.9 - Acute upper respiratory infection, unspecified Instructions Patient Instructions: DI for Viral Upper Respiratory Infection -- Adult Discharge ED Provider: Drew ([facility])Alicia [facility] HPI General Stated complaint: upper respitory, cough,aches Mode of Arrival: Ambulatory Source of Information: Patient Limitations: No Limitations Time Seen by Provider: 07/19/23 14:07 Description of Symptoms (Recalled from Triage Doc. by RN): cough, congestion, body aches, sneezing, and sore throat HEENT Symptoms (Recalled from RN notes): Yes Resp Symptoms (Recalled from RN notes): No Skin Symptoms (Recalled from RN notes): No MS Symptoms (Recalled from RN notes): No Functional Status (Recalled from RN notes): n/a History of Present Illness Provider Complaint: 32 yr old female presents for cough, congestion, body aches, sneezing, and sore throat Related Data Home Medications Medication Instructions Recorded Confirmed aripiprazole 10 mg tablet (Abilify) 10 mg PO QHS . 05/31/23 07/19/23 buspirone 10 mg tablet 10 mg PO BID . 05/31/23 07/19/23 Previous Rx's Medication Instructions Recorded fluoxetine 40 mg capsule (Prozac) 40 mg PO DAILY #30 caps 04/30/23 hydroxyzine HCl 10 mg tablet 10 mg PO TID PRN anxiety #90 tabs 04/30/23 imsfqbwhhlgscxo-rycwlfnmtthtaiy-YS 5 ml PO Q6H PRN cold symptoms #118 07/19/23 2 mg-30 mg-10 mg/5 mL oral syrup mL (Bromfed DM) Allergies Allergy/AdvReac Type Severity Reaction Status Date / Time shrimp Allergy Mild Verified 07/19/23 14:05 Worker's Comp Is this a Worker's Comp case?: No [facility] Disclaimer: The information contained in this section may have been updated after the patient was seen, as this information can be updated by other users. Medical History , PATIENT INTAKE COORDINATOR) Anxiety Bipolar II disorder Urinary tract infection Social History , PATIENT INTAKE COORDINATOR) Smoking Status: Current every day smoker tobacco type: cigarettes packs per day: 1 alcohol intake: current substance use type: marijuana current occupational status: employed Travel in the last 8 weeks: None household members: family housing: house number of children: 0 ROS Obtained: Yes All systems reviewed & no additional complaints except as documented Constitutional Constitutional: Reports system reviewed and no additional complaints, except as documented, Reports as
[2023-07-19 14:09] LABS: UTC Strep Screen (Rapid) Negative (Negative)
[2023-07-19 14:19] VITALS: BP 142/90; PULSE 103; RESP 18; TEMP 36.7; O2SAT 97
== END 2023-07-19 14:18 | disposition home or self-care (01) ==
PROVIDERS: Emergency Provider Nurse Practitioner Family
DX: R05.9 Cough, unspecified (principal); J06.9 Acute upper respiratory infection, unspecified; R07.0 Pain in throat; R09.81 Nasal congestion; M79.18 Myalgia, other site; F17.210 Nicotine dependence, cigarettes, uncomplicated
CPT/HCPCS: 87880; 99212; 99214; G0463

== ENCOUNTER 2023-11-24 12:24 | Emergency (ER) | payer BC, SELFPAY ==
[2023-11-24 13:00] VITALS: BP 123/88; PULSE 101; RESP 19; TEMP 37.2; O2SAT 99; BMI 38.1
--- NOTE | 2023-11-24 13:11 | ED_ITS ---
Discharge Plan Disposition Patient Disposition: Home, Self-Care Condition: Good Prescriptions Prescriptions: New methylprednisolone [Medrol (Steven)] 4 mg tablets,dose pack See Rx Instructions .Route .COMPLEX 6 Days Qty: 21 0RF Rx Instructions: taper pack; amoxicillin-pot clavulanate 875-125 mg Tablet 1 tab PO Q12H Qty: 20 0RF No Action fluoxetine [Prozac] 40 mg capsule 40 mg PO DAILY Qty: 30 1RF hydroxyzine HCl 10 mg tablet 10 mg PO TID PRN (Reason: anxiety) Qty: 90 1RF buspirone 10 mg tablet 10 mg PO BID aripiprazole [Abilify] 10 mg tablet 10 mg PO QHS wpbjnudwkwbdigd-izivjvsmt-QY [Bromfed DM] 2-30-10 mg/5 mL syrup 5 ml PO Q6H PRN (Reason: cold symptoms) Qty: 118 0RF Referrals Follow up/Referrals: Provider,Referral, MD [Primary Care Provider] - See instructions Activity Restrictions/Add. Instructions Additional Instructions/Restrictions: *Monitor Temp, Over the counter Motrin or Tylenol as directed/as needed Tylenol every 4 hours and Motrin every 6 hours (as long as your family doctor has told you that you can take it) for fever or pain. and straight to ER if unable to lower temp less than 101.0 after medication given *Warm salt water gargles may help to soothe the throat *Throat Lozenges? *Warm fluids like tea with honey may help to soothe the throat? *Sleep elevated *Humidifier/Vaporizer Follow up IMMEDIATELY for new or worsening symptoms or no Noticeable improvement over the next 48-72 hours. 911 for difficulty breathing or swallowing Clinical Impressions Clinical Impression: Sinusitis Qualifiers: Sinusitis location: unspecified location Chronicity: unspecified Qualified Code(s): J32.9 - Chronic sinusitis, unspecified Instructions Patient Instructions: Sinusitis, DI for Sinusitis Discharge ED Provider: Viridiana Whitney [facility] HPI General Stated complaint: congestion,sore throat Time Seen by Provider: 11/24/23 13:11 History of Present Illness Provider Complaint: Patient states that she has been having sinus pain and pressure States it started off as allergies but for the last week has got worse states that she is having pain and pressure and pressure behind her eyes so today when she was still hurting she came in Related Data Home Medications Medication Instructions Recorded Confirmed aripiprazole 10 mg tablet (Abilify) 10 mg PO QHS . 05/31/23 07/19/23 buspirone 10 mg tablet 10 mg PO BID . 05/31/23 07/19/23 Previous Rx's Medication Instructions Recorded fluoxetine 40 mg capsule (Prozac) 40 mg PO DAILY #30 caps 04/30/23 hydroxyzine HCl 10 mg tablet 10 mg PO TID PRN anxiety #90 tabs 04/30/23 usggyeqyzejrkek-gnlahctffbbnekj-GM 5 ml PO Q6H PRN cold symptoms #118 07/19/23 2 mg-30 mg-10 mg/5 mL oral syrup mL (Bromfed DM) amoxicillin 875 mg-potassium 1 tab PO Q12H #20 tabs 11/24/23 clavulanate 125 mg tablet methylprednisolone 4 mg tablets in See Rx Instructions .Route 11/24/23 a dose pack (Medrol (Steven)) .COMPLEX 6 days #21 tabs Allergies Allergy/AdvReac Type Severity Reaction Status Date / Time shrimp Allergy Mild Verified 11/24/23 13:30 [facility] Disclaimer: The information contained in this section may have been updated after the patient was seen, as this information can be updated by other users. Medical History , [employer]) Anxiety Bipolar II disorder Urinary tract infection Social History Smoking Status: Current every day smoker tobacco type: cigarettes packs per day: 1 alcohol intake: current substance use type: marijuana current occupational status: employed Travel in the last 8 weeks: None household members: family housing: house number of children: 0 ROS Obtained: Yes All systems reviewed & no additional complaints except as documented and Yes Systems reviewed as appropriate & no additional complaints except as documented Constitutional Constitutional: Reports system reviewed and no additional complaints, except as documented, Reports as per HPI and Reports headache(s) ENT Ears, Nose, Mouth, and Throat: Reports system reviewed and no additional complaints, except as documented, Reports as per HPI, Reports headache(s), Reports sinus pain, Reports sinus pressure and Reports sore throat (scratchy throat) Cardiovascular Cardiovascular: Reports system reviewed and no additional complaints, except as documented and Reports as per HPI Respiratory Respiratory: Reports system reviewed and no additional complaints, except as documented and Reports as per HPI Neurologic Neurologic: Reports headache(s) Physical Exam General General appearance: alert and in no apparent distress ENT ENT exam: Present mucous membranes moist Expanded ENT Exam Nose exam: Present sinus tenderness Throat exam: Present other (Pharyngeal erythema noted with PND) Respiratory Respiratory exam: Present normal lung sounds bilaterally; Absent respiratory distress or wheezes Cardiovascular Cardiovascular exam: Present regular rate, normal rhythm and normal heart sounds Neurological Exam Neurological exam: Present alert, oriented X3 and normal gait Medical Decision Making Elio Inquiry Pt receiving controlled substance: No Elio was queried for this patient: No Medical Decision Narrative: Patient denies States that last period waws 2 weeks ago
[2023-11-24 13:30] VITALS: BP 123/88; PULSE 101; RESP 19; TEMP 37.2; O2SAT 99
== END 2023-11-24 13:30 | disposition home or self-care (01) ==
PROVIDERS: Emergency Provider Nurse Practitioner
DX: J01.90 Acute sinusitis, unspecified (principal); R51.9 Headache, unspecified; R09.81 Nasal congestion; F17.210 Nicotine dependence, cigarettes, uncomplicated
CPT/HCPCS: 99212; 99214; G0463

== ENCOUNTER 2024-05-04 11:14 | Emergency (ER) | payer BC, SELFPAY ==
[2024-05-04 11:25] VITALS: BP 133/81; PULSE 87; RESP 16; TEMP 36.7; O2SAT 99; BMI 37.3
[2024-05-04 11:31] LABS: UTC Strep Screen (Rapid) Negative (Negative)
--- NOTE | 2024-05-04 11:40 | EXP.UTC ---
Discharge Plan Disposition Patient Disposition: Home, Self-Care Condition: Good Prescriptions Prescriptions: New azithromycin [Zithromax] 250 mg tablet 250 mg PO UD DOSE PK Qty: 6 0RF Rx Instructions: Take two (2) tablets today, then one (1) tablet days #2 thru #5 methylprednisolone 4 mg Tablets,Dose Pack 4 mg PO DIRECTED 6 Days Qty: 21 0RF Rx Instructions: Take 1 pack as directed for 6 days No Action fluoxetine [Prozac] 40 mg capsule 40 mg PO DAILY Qty: 30 1RF hydroxyzine HCl 10 mg tablet 10 mg PO TID PRN (Reason: anxiety) Qty: 90 1RF buspirone 10 mg tablet 10 mg PO BID aripiprazole [Abilify] 10 mg tablet 10 mg PO QHS scmwmllxigpdqwn-ghjutoisj-XZ [Bromfed DM] 2-30-10 mg/5 mL syrup 5 ml PO Q6H PRN (Reason: cold symptoms) Qty: 118 0RF methylprednisolone [Medrol (Steven)] 4 mg tablets,dose pack See Rx Instructions .Route .COMPLEX 6 Days Qty: 21 0RF Rx Instructions: taper pack; amoxicillin-pot clavulanate 875-125 mg Tablet 1 tab PO Q12H Qty: 20 0RF Referrals Follow up/Referrals: Provider,Referral, MD [Primary Care Provider] - See instructions Activity Restrictions/Add. Instructions Additional Instructions/Restrictions: Drink plenty of fluids. Take tylenol or ibuprofen for pain or fever. Take the medications as directed. Follow up with your regular doctor. GO TO THE ER FOR ANY WORSENING SYMPTOMS Clinical Impressions Clinical Impression: Pharyngitis, Acute viral syndrome Stand Alone Forms Stand Alone Forms: Work/School Release Instructions Patient Instructions: DI for Pharyngitis/Tonsillopharyngitis -- Adult Print Language Print Language: Kazakh Discharge ED Provider: Gerson Rosario [facility] [place] HPI General Stated complaint: sore throat Mode of Arrival: Ambulatory Source of Information: Patient Limitations: No Limitations Time Seen by Provider: 05/04/24 11:39 Description of Symptoms (Recalled from Triage Doc. by RN): Complaint of sore throat and drainage. HEENT Symptoms (Recalled from RN notes): Yes Resp Symptoms (Recalled from RN notes): No Skin Symptoms (Recalled from RN notes): No MS Symptoms (Recalled from RN notes): No Functional Status (Recalled from RN notes): wnl History of Present Illness Provider Complaint: She states that for the past 3 days she has had sore throat, sinus congestion, chills, and malaise. Related Data Home Medications ?Medication ?Instructions ?Recorded ?Confirmed aripiprazole 10 mg tablet (Abilify) 10 mg PO QHS . 05/31/23 07/19/23 buspirone 10 mg tablet 10 mg PO BID . 05/31/23 07/19/23 Previous Rx's ?Medication ?Instructions ?Recorded fluoxetine 40 mg capsule (Prozac) 40 mg PO DAILY #30 caps 04/30/23 hydroxyzine HCl 10 mg tablet 10 mg PO TID PRN anxiety #90 tabs 04/30/23 rcjwleijfilulpc-neeysnzwrhkjidp-BC 5 ml PO Q6H PRN cold symptoms #118 07/19/23 2 mg-30 mg-10 mg/5 mL oral syrup mL (Bromfed DM) amoxicillin 875 mg-potassium 1 tab PO Q12H #20 tabs 11/24/23 clavulanate 125 mg tablet methylprednisolone 4 mg tablets in See Rx Instructions .Route 11/24/23 a dose pack (Medrol (Steven)) .COMPLEX 6 days #21 tabs azithromycin 250 mg tablet 250 mg PO UD DOSE PK #6 tabs 05/04/24 (Zithromax) methylprednisolone 4 mg tablets in 4 mg PO DIRECTED 6 days #21 tabs 05/04/24 a dose pack Allergies Allergy/AdvReac Type Severity Reaction Status Date / Time shrimp Allergy Mild Verified 11/24/23 13:30 Worker's Comp Is this a Worker's Comp case?: No [facility]SH [facility] Disclaimer: The information contained in this section may have been updated after the patient was seen, as this information can be updated by other users. 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[employer]) Anxiety Bipolar II disorder Urinary tract infection Social History Smoking Status: Current every day smoker tobacco type: cigarettes packs per day: 1 alcohol intake: current alcohol intake frequency: holidays/special occasions only substance use type: marijuana current occupational status: employed Travel in the last 8 weeks: None household members: family housing: house number of children: 0 ROS Obtained: Yes All systems reviewed & no additional complaints except as documented Constitutional Constitutional: Reports chills and Reports fever(s) Eyes Eyes: Denies eye discharge ENT Ears, Nose, Mouth, and Throat: Reports as per HPI Cardiovascular Cardiovascular: Denies chest pain Respiratory Respiratory: Denies chest congestion and Reports cough Gastrointestinal Gastrointestingal: Reports nausea; Denies abdominal pain, constipation, cramping, diarrhea or vomiting Musculoskeletal Musculoskeletal: Denies arthralgias Integumentary/Breasts Skin/Breast: Denies rash Neurologic Neurologic: Denies paresthesias Physical Exam General General appearance: alert and in no apparent distress Head Head exam: atraumatic, normocephalic and normal inspection Eye Eye exam: Present normal appearance, PERRL and EOMI ENT ENT exam: Present mucous membranes moist and normal external ear exam Expanded ENT Exam TM/Canal exam: Bilateral TM: erythema and bulging Nose exam: Absent sinus tenderness Mouth exam: Present normal external inspection; Absent drooling Teeth exam: Present normal inspection Throat exam: Present tonsillar erythema, tonsillomegaly and tonsillar exudate Neck Neck exam: Present normal inspection, full ROM and trachea midline; Absent tenderness, meningismus or lymphadenopathy Chest Chest inspection: Present normal inspection and symmetric chest wall rise; Absent tenderness Respiratory Respiratory exam: Present normal lung sounds bilaterally; Absent respiratory distress, wheezes, stridor or accessory muscle use Cardiovascular Cardiovascular exam: Present regular rate and normal rhythm; Absent systolic murmur or diastolic murmur Abdominal Exam Abdominal exam: Present soft and normal bowel sounds; Absent distention, tenderness, guarding, rebound or rigidity Extremities Exam Extremities exam: Present normal inspection and normal capillary refill; Absent calf tenderness Back Exam Back exam: Present normal inspection and full ROM; Absent tenderness, CVA tenderness (R) or CVA tenderness (L) Neurological Exam Neurological exam: Present alert, oriented X3 and CN II-XII intact Psychiatric Psychiatric exam: Present normal affect and normal mood Skin Skin exam: Present warm, dry, intact and normal color Medical Decision Making Medical Records Medical records reviewed: No I reviewed the patient's medical records. Screening: Per USPSTF and CDC recommendations, given the prevalence of disease in our region, it is our hospital?s policy to screen for HIV and viral Hepatitis for all patients aged 18 and over and those with ongoing risk factors. Elio Inquiry Pt receiving controlled substance: No Vital Signs: 05/04/24 11:25 Temperature 98.1 F Temperature Source Oral Pulse Rate [Radial] 87 Respiratory Rate 16 Blood Pressure [Right Arm] 133/81 Blood Pressure Mean [Right Arm] 98 Blood Pressure Source [Right Arm] Automatic Cuff Blood Pressure Position [Right Arm] Sitting 02 Sat by Pulse Oximetry 99 Oxygen Delivery Method Room Air Lab Data Lab results reviewed: Yes I reviewed the patient's lab results. Lab Results 05/04/24 11:26: Strep Scn Rapid Clinic Negative Orders (Tests/Meds): ORDERS Category Date Time Status Strep Screen Confirmation Stat Micro 05/04/24 11:26 Received
[2024-05-04 12:21] VITALS: BP 133/81; PULSE 87; RESP 16; TEMP 36.7; O2SAT 99
== END 2024-05-04 12:22 | disposition home or self-care (01) ==
PROVIDERS: Emergency Provider Nurse Practitioner Family
DX: J02.9 Acute pharyngitis, unspecified (principal); R09.81 Nasal congestion; B34.9 Viral infection, unspecified
CPT/HCPCS: 87635; 87880; 99212; 99214; G0463

== ENCOUNTER 2024-07-07 09:43 | Emergency (ER) | payer BC, SELFPAY ==
[2024-07-07 10:55] VITALS: BP 115/84; PULSE 89; RESP 20; TEMP 37.1; O2SAT 98; BMI 36.6
--- NOTE | 2024-07-07 10:56 | ED_ITS ---
Discharge Plan Disposition Patient Disposition: Home, Self-Care Condition: Good Prescriptions Prescriptions: New ondansetron 4 mg Tablet,Disintegrating 4 mg PO Q8H PRN (Reason: Nausea) Qty: 12 0RF dicyclomine 20 mg tablet 20 mg PO TID PRN (Reason: abdominal pain) Qty: 20 0RF Referrals Follow up/Referrals: Provider,Referral, MD [Primary Care Provider] - See instructions Activity Restrictions/Add. Instructions Additional Instructions/Restrictions: Drink plenty of fluids. Take tylenol or ibuprofen for pain or fever. Take the medications as directed. Follow up with your regular doctor. GO TO THE ER FOR ANY WORSENING SYMPTOMS The medications may make you drowsy, so don't drive or operate heavy machinery after taking them. Clinical Impressions Clinical Impression: Gastroenteritis Stand Alone Forms Stand Alone Forms: Work/School Release Instructions Patient Instructions: Viral Gastroenteritis, DI for Viral Gastroenteritis -- Adult, Ondansetron, Dicyclomine Print Language Print Language: German Discharge ED Provider: Gerson Rosario [facility] [place] HPI General Stated complaint: nausea, vomiting Time Seen by Provider: 07/07/24 10:56 Related Data Previous Rx's ?Medication ?Instructions ?Recorded dicyclomine 20 mg tablet 20 mg PO TID PRN abdominal pain 07/07/24 #20 tabs ondansetron 4 mg disintegrating 4 mg PO Q8H PRN Nausea #12 tabs 07/07/24 tablet Allergies Allergy/AdvReac Type Severity Reaction Status Date / Time shrimp Allergy Mild Verified 11/24/23 13:30 [facility] Disclaimer: The information contained in this section may have been updated after the patient was seen, as this information can be updated by other users. Medical History (Reviewed 07/19/23 @ 14:08 by Alicia Russell ([facility]), [employer]) Anxiety Bipolar II disorder Urinary tract infection Social History Smoking Status: Current every day smoker tobacco type: cigarettes packs per day: 1 alcohol intake: current alcohol intake frequency: holidays/special occasions only substance use type: marijuana current occupational status: employed household members: family housing: house number of children: 0 ROS Obtained: Yes All systems reviewed & no additional complaints except as documented Constitutional Constitutional: Denies chills, Denies fever(s) and Reports poor appetite ENT Ears, Nose, Mouth, and Throat: Denies dizziness and Denies sore throat Cardiovascular Cardiovascular: Denies dyspnea Respiratory Respiratory: Denies chest congestion, Denies cough and Denies dyspnea Gastrointestinal Gastrointestingal: Reports as per HPI; Denies abdominal pain Genitourinary Female Genitourinary: Denies difficulty voiding, Denies dysuria, Denies hematuria, Denies urinary frequency, Denies urinary incontinence, Denies urinary hesitancy and Denies urinary urgency Musculoskeletal Musculoskeletal: Denies arthralgias Integumentary/Breasts Skin/Breast: Denies rash Neurologic Neurologic: Denies dizziness Physical Exam General General appearance: alert and in no apparent distress Head Head exam: atraumatic and normocephalic Eye Eye exam: Present normal appearance, PERRL and EOMI ENT ENT exam: Present normal exam, normal oropharynx, mucous membranes moist, TM's normal bilaterally and normal external ear exam Neck Neck exam: Present normal inspection, full ROM and trachea midline; Absent tenderness, meningismus or lymphadenopathy Chest Chest inspection: Present normal inspection and symmetric chest wall rise; Absent tenderness, rash or abscess Respiratory Respiratory exam: Present normal lung sounds bilaterally; Absent respiratory di stress, wheezes or stridor Cardiovascular Cardiovascular exam: Present regular rate and normal rhythm; Absent irregular rhythm, systolic murmur, diastolic murmur or JVD Abdominal Exam Abdominal exam: Present soft and hyperactive bowel sounds; Absent distention, tenderness, guarding, rebound, rigidity, psoas sign, obturator sign, heel tap sign, Troy's sign, Rovsing's sign or tenderness at McBurney's Point Extremities Exam Extremities exam: Present normal inspection and full ROM; Absent tenderness Back Exam Back exam: Present normal inspection and full ROM; Absent tenderness, CVA tenderness (R) or CVA tenderness (L) Neurological Exam Neurological exam: Present alert, oriented X3 and CN II-XII intact Psychiatric Psychiatric exam: Present normal affect and normal mood Skin Skin exam: Present warm, dry, intact and normal color Lymphatic Lymphatic Findings: no adenopathy Medical Decision Making Medical Records Medical records reviewed: No I reviewed the patient's medical records. Screening: Per USPSTF and CDC recommendations, given the prevalence of disease in our region, it is our hospital?s policy to screen for HIV and viral Hepatitis for all patients aged 18 and over and those with ongoing risk factors. Elio Inquiry Pt receiving controlled substance: No Lab Data Lab results reviewed: Yes I reviewed the patient's lab results.
[2024-07-07 11:14] LABS: UTC Influenza A Antigen Negative (Negative); UTC Influenza B Antigen Negative (Negative)
[2024-07-07 11:38] VITALS: BP 115/84; PULSE 89; RESP 20; TEMP 37.1; O2SAT 98
== END 2024-07-07 11:40 | disposition home or self-care (01) ==
PROVIDERS: Emergency Provider Nurse Practitioner Family
DX: K52.9 Noninfective gastroenteritis and colitis, unspecified (principal)
CPT/HCPCS: 87804; 99213; G0381

== ENCOUNTER 2024-11-02 08:09 | Outpatient (CLI) | payer BC, SELFPAY ==
[2024-11-02 12:32] LABS: Influenza A, PCR Not Detected (NotDetected); Influenza B, PCR Not Detected (NotDetected)
[2024-11-02 14:08] LABS: Coronavirus 19, PCR Detected (NotDetected)
== END 2024-11-02 23:59 | disposition home or self-care (01) ==
LOC: LAB.DROPOF 11-03 09:55
PROVIDERS: PCP Student in an Organized Health Care Education/Training Program; Visit Provider Student in an Organized Health Care Education/Training Program
DX: R05.9 Cough, unspecified (principal); Z20.822 Contact with and (suspected) exposure to COVID-19
CPT/HCPCS: 87636